=== PATIENT | male | born 1955 | race Caucasian/White ===

== ENCOUNTER → 2023-05-05 | Outpatient (CLI) | payer MEDICARE, OTHER ==
--- NOTE | 2023-05-07 08:52 | CT ---
EXAMINATION TYPE: CT left knee - MOHSEN Protocol CT DLP: 856 mGycm, Automated exposure control for dose reduction was used. DATE OF EXAM: 05/05/2023 3:22 PM COMPARISON: None CLINICAL INDICATION:Male, 68 years old with history of M17.12 OSTEOARTHRITIS; Osteoarthritis, pre-camilo gical. TECHNIQUE: Axial images were obtained of the CT left knee - MOHSEN Protocol, Additional coronal and sag ittal reformatted images and soft tissue and bone window were obtained for review. Contrast used: (None if empty) Oral contrast used: (None if empty) FINDINGS: The visualized portion of the hips demonstrate mild osteoarthrosis changes with osteophyte formation of the acetabulum. No acute intrapelvic process. The bony structures of the pelvis are inta ct. The visualized knee demonstrates osteophyte formation of the tibial plateau, the patella and femoral condyles. There is joint space narrowing and subchondral sclerosis. No evidence of fracture. There is a small joint effusion present. Visualized ankle demonstrates multifocal osteoarthrosis changes with osteophyte formation and mild della int space narrowing. No evidence of fractures. IMPRESSION: End-stage osteoarthrosis changes of the left knee.
== END | disposition home or self-care (01) ==
LOC: RADCTMAIN 14:18
PROVIDERS: ATTEND Orthopaedic Surgery
DX: M17.12 Unilateral primary osteoarthritis, left knee (principal)